=== PATIENT | female | born 1965 | race Caucasian/White ===

== ENCOUNTER 2018-01-23 09:57 | Emergency (ER) | payer MEDICAID ==
[~2018-01-23] VITALS: Ht 165.1 cm; Wt 64.5 kg
[2018-01-23 12:11] LABS: BASOPHILS % (AUTO) 0.2 % (0-1); EOSINOPHILS % (AUTO) 0.4 % (0-6); HEMATOCRIT 44.7 % (35.0-45.0); HEMOGLOBIN 15.2 g/dl (12.0-16.0); LYMPHOCYTES # (AUTO) 1.7 X10'3 (1.1-4.8); LYMPHOCYTES % (AUTO) 21.5 % (21-51); MEAN CORPUSCULAR VOLUME 91.2 FL (78-98); MEAN PLATELET VOLUME 6.4 FL (7.4-10.4); MONOCYTES # (AUTO) 0.4 X10'3 (0-0.9); MONOCYTES % (AUTO) 4.7 % (2-12); NEUTROPHILS # (AUTO) 5.9 X10'3 (1.8-7.7); NEUTROPHILS % (AUTO) 73.2 % (42-75); PLATELET COUNT 345 X10'3 (140-440); RED CELL DISTRIBUTION WIDTH 14.3 % (11.5-14.5); WHITE BLOOD COUNT 8.1 X10'3 (4.5-11.0)
[2018-01-23 12:14] LABS: URINE AMPHETAMINE SCREEN NEGATIVE (Neg); URINE BARBITUATE SCREEN NEGATIVE (Neg); URINE BENZODIAZEPINES SCREEN NEGATIVE (Neg); URINE CANNABINOID SCREEN POSITIVE (Neg); URINE COCAINE SCREEN NEGATIVE (Neg); URINE METHADONE SCREEN NEGATIVE (Neg); URINE OPIATE SCREEN NEGATIVE (Neg); URINE PHENCYCLIDINE SCREEN NEGATIVE (Neg)
[2018-01-23 12:25] LABS: ALANINE AMINOTRANSFERASE 26 U/L (12-78); ALBUMIN 4.4 G/DL (3.4-5.0); ALKALINE PHOSPHATASE 84 IU/L (46-116); ANION GAP 14 (8-16); ASPARTATE AMINO TRANSFERASE 60 U/L (10-37); BILIRUBIN,TOTAL 0.5 MG/DL (0.1-1.0); BLOOD UREA NITROGEN 11 MG/DL (7-18); BUN/CREATININE RATIO 12.8 (6.6-38.0); CALCIUM 9.7 MG/DL (8.5-10.1); CHLORIDE 102 MMOL/L (99-107); CREATININE 0.86 MG/DL (0.40-0.90); GLUCOSE 97 MG/DL (70-104); POTASSIUM 3.6 MMOL/L (3.5-5.1); SODIUM 140 MMOL/L (135-145); TOTAL CARBON DIOXIDE 24.5 MMOL/L (24-32); TOTAL PROTEIN 8.8 G/DL (6.4-8.2); eGFR 70 ML/MIN
[2018-01-23 12:30] VITALS: BP 141/82
[2018-01-23 12:36] LABS: ETHANOL < 0.010 GM/DL (0.0-0.010)
== END 2018-01-23 13:13 | disposition home or self-care (01) ==
LOC: ER 09:58
DX: F32.9 Major depressive disorder, single episode, unspecified (principal); K59.00 Constipation, unspecified; F12.90 Cannabis use, unspecified, uncomplicated; M06.9 Rheumatoid arthritis, unspecified; Z88.8 Allergy status to other drugs, medicaments and biological substances
CPT/HCPCS: 36415; 80053; 80305; 80320; 84443; 85025; 99284

== ENCOUNTER 2018-05-18 19:41 | Emergency (ER) | payer MEDICAID ==
[~2018-05-18] VITALS: Ht 165.1 cm; Wt 67.6 kg
[2018-05-18 19:45] VITALS: BP 167/86
[2018-05-18] MEDS ORDERED: TETanus/Pertussis (Acell)/Diphther VAC/PF (Tdap-Adult) 0.5ml syringe IM ONE (19:55)
[2018-05-18] MEDS ORDERED: LIDOcaine 1% 30ml preserv. free vial IJ ONE (19:55)
[2018-05-18] MEDS ORDERED: HYDR200T80 PO (20:12)
[2018-05-18] MEDS ORDERED: PRED5TAB PO (20:12)
[2018-05-18] MEDS ORDERED: TOFA5TAB PO (20:12)
== END 2018-05-18 21:11 | disposition home or self-care (01) ==
LOC: ER 19:41
DX: S81.812A Laceration without foreign body, left lower leg, initial encounter (principal); F12.10 Cannabis abuse, uncomplicated; M06.9 Rheumatoid arthritis, unspecified; Z88.8 Allergy status to other drugs, medicaments and biological substances; W26.8XXA Contact with other sharp object(s), not elsewhere classified, initial encounter; Y93.89 Activity, other specified; Y92.89 Other specified places as the place of occurrence of the external cause; Y99.8 Other external cause status
CPT/HCPCS: 12002; 73590; 90471; 90715; 99284; J3490

== ENCOUNTER 2018-09-05 09:32 | Outpatient (CLI) | payer MEDICAID ==
[~2018-09-05 09:32] MED LIST: HYDR200T80 PO; PRED5TAB PO; TOFA5TAB PO
== END 2018-09-05 23:59 | disposition home or self-care (01) ==
LOC: RAD 09:32
DX: R56.9 Unspecified convulsions (principal)
CPT/HCPCS: 95819

== ENCOUNTER 2019-05-15 12:39 | Inpatient (IN) | payer MEDICAID ==
[~2019-05-15] VITALS: Ht 165.1 cm; Wt 63.6 kg
[2019-05-15 13:07] LABS: BASOPHILS % (AUTO) 0.2 % (0-1); EOSINOPHILS % (AUTO) 0.3 % (0-6); HEMATOCRIT 40.7 % (35.0-45.0); LYMPHOCYTES # (AUTO) 0.7 X10'3 (1.1-4.8); LYMPHOCYTES % (AUTO) 10.3 % (21-51); MEAN CORPUSCULAR HEMOGLOBIN 32.3 PG (27.0-31.0); MEAN CORPUSCULAR HGB CONC 34.4 g/dL (33.0-36.5); MEAN CORPUSCULAR VOLUME 93.9 FL (78-98); MEAN PLATELET VOLUME 6.4 FL (7.4-10.4); MONOCYTES # (AUTO) 0.2 X10'3 (0-0.9); MONOCYTES % (AUTO) 2.5 % (2-12); NEUTROPHILS # (AUTO) 5.9 X10'3 (1.8-7.7); NEUTROPHILS % (AUTO) 86.7 % (42-75); PLATELET COUNT 339 X10'3 (140-440); RED BLOOD COUNT 4.34 X10'6 (4.20-5.60); RED CELL DISTRIBUTION WIDTH 13.6 % (11.5-14.5); WHITE BLOOD COUNT 6.8 X10'3 (4.5-11.0)
--- NOTE | 2019-05-15 13:34 | NUR ---
stroke assessment performed by neuro tele md. stroke assessment was negative
[2019-05-15 13:48] LABS: ALANINE AMINOTRANSFERASE 27 U/L (12-78); ALBUMIN 4.2 G/DL (3.4-5.0); ALBUMIN/GLOBULIN RATIO 1.1 (1.1-1.5); ALKALINE PHOSPHATASE 73 IU/L (46-116); ANION GAP 11 (8-16); ASPARTATE AMINO TRANSFERASE 65 U/L (10-37); BILIRUBIN,TOTAL 0.4 MG/DL (0.1-1.0); BLOOD UREA NITROGEN 13 MG/DL (7-18); BUN/CREATININE RATIO 17.6 (6.6-38.0); CALCIUM 9.1 MG/DL (8.5-10.1); CHLORIDE 103 MMOL/L (99-107); CREATININE 0.74 MG/DL (0.40-0.90); GLUCOSE 136 MG/DL (70-104); POTASSIUM 3.7 MMOL/L (3.5-5.1); SODIUM 141 MMOL/L (135-145); TOTAL CARBON DIOXIDE 26.8 MMOL/L (24-32); TOTAL PROTEIN 8.2 G/DL (6.4-8.2); eGFR 82 ML/MIN
[2019-05-15 13:55] LABS: CARBAMAZEPINE (TEGRETOL) < 0.5 UG/ML (4.0-12.0)
--- NOTE | 2019-05-15 14:02 | NUR ---
pt had a what appears to be a partial or non complete seizure. rn at bedside. md called in room witnessed.
[2019-05-15] MEDS ORDERED: CARB300C9 PO (14:23)
[2019-05-15] MEDS ORDERED: TEMA15CA PO (14:25)
[2019-05-15] MEDS ORDERED: BACL10TA2 PO (14:25)
[2019-05-15] MEDS ORDERED: PRED2.5T4 PO (14:26)
[2019-05-15] MEDS ORDERED: LEVE250T PO (14:35)
[2019-05-15] MEDS ORDERED: magnesium Cl slow-release 64mg tablet PO PRN (14:45)
[2019-05-15] MEDS ORDERED: acetaminophen 325mg tablet PO PRN ×2 (14:45)
[2019-05-15] MEDS ORDERED: magnesium hydroxide 30ml (MOM) UD suspension PO PRN (14:45)
[2019-05-15] MEDS ORDERED: TOFA5TAB PO (14:45)
[2019-05-15] MEDS ORDERED: mag hydrox/Alum hydrox/simeth 30ml oral suspension PO PRN (14:45)
[2019-05-15] MEDS ORDERED: HYDROcodone/acetaminophen 5mg/325mg tablet PO PRN (14:45)
[2019-05-15] MEDS ORDERED: magnesium 2GM in 50ml NS 50 ML IV PRN (14:45)
[2019-05-15] MEDS ORDERED: bisacodyl 10mg suppository rectal RC PRN (14:45)
[2019-05-15] MEDS ORDERED: FOSphenytoin 500mg inj. 1,000 MG in normal saline 100ml IV soln 80 ML IV ONE (14:45)
[2019-05-15] MEDS ORDERED: potassium CL 10mEq/100ml bag 100 ML IV PRN ×2 (14:45)
[2019-05-15] MEDS ORDERED: magnesium 4gm in 100ml NS 100 ML IV PRN (14:45)
[2019-05-15] MEDS ORDERED: ondansetron/PF 4mg/2ml inj IV PRN (14:45)
[2019-05-15] MEDS ORDERED: acetaminophen 650mg rectal suppository RC PRN (14:45)
[2019-05-15] MEDS ORDERED: potassium Cl 20 mEq SR tablet PO PRN ×2 (14:45)
[2019-05-15] MEDS ORDERED: metoclopramide 5 mg/ml inj IV PRN (14:45)
[2019-05-15] MEDS ORDERED: phenytoin sod inj 1,000 MG in normal saline 100ml IV soln 80 ML IV ONE (15:06)
[2019-05-15 15:10] LABS: PHENYTOIN (DILANTIN) < 0.5 UG/ML (10.0-20.0)
[2019-05-15] MEDS ORDERED: NORMAL SALINE IV ONE (15:20)
[2019-05-15] MEDS ORDERED: PHENYTOIN SOD IV ONE (15:20)
[2019-05-15] MEDS ORDERED: baclofen 10mg tablet PO PRN (15:40)
--- NOTE | 2019-05-15 15:42 | NUR ---
attempted to call report to RN receiving this patient and spoke with the charge nurse. I was told this nurse was not ready to take report and to call back in a few minutes
[2019-05-15] MEDS ORDERED: TOFA10TA PO (15:47)
--- NOTE | 2019-05-15 16:10 | NUR ---
CALLED REPORT TO DONOVAN ARMIJO ON [facility]
[2019-05-15] MEDS ORDERED: gadobutrol 10mmol/10ml inj. IV ONE (17:09)
[2019-05-15 18:00] VITALS: BP 138/81
--- NOTE | 2019-05-15 18:20 | NUR ---
Patient in room ORTHO 4009. I have received report from Kristen ARMIJO and Benji MOREAU and had the opportunity to ask questions and assume patient care.
--- NOTE | 2019-05-15 18:50 | NUR ---
Student documentation: I have reviewed and agree with all interventions, assessments performed and documented by Benji NS. Student Medication Administration: For this medication-pass time frame, all medication were reviewed, dispensed, administered and documented per hospital policy by Benji NS.
--- NOTE | 2019-05-15 18:54 | NUR ---
Problems reprioritized. Patient report given, questions answered & plan of care reviewed with Darshana ARMIJO.
[2019-05-15 20:28] LABS: CLARITY,URINE CLEAR (Clear); COLOR,URINE YELLOW (Yellow); GLUCOSE, URINE NEGATIVE (Neg); KETONES,URINE NEGATIVE (Neg); LEUKOCYTE ESTERASE ,URINE NEGATIVE (Neg); NITRITES, URINE NEGATIVE (Neg); OCCULT BLOOD,URINE NEGATIVE (Neg); PROTEIN,URINE NEGATIVE (Neg); UROBILINOGEN,URINE 0.2 E.U/dL (0.2-1.0)
[2019-05-15 20:29] LABS: UA COLLECTION TYPE CLN CATCH MIDSTREAM
[2019-05-15] MEDS ORDERED: carBAMazepine Ext. Release 200 MG TAB.ER.12H PO SCH (21:00)
[2019-05-15] MEDS ORDERED: temazepam 15mg capsule PO PRN (21:00)
[2019-05-15] MEDS ORDERED: temazepam 15mg capsule PO SCH (21:00)
[2019-05-15 22:00] VITALS: BP 109/61
[2019-05-16 06:00] VITALS: BP 124/78
--- NOTE | 2019-05-16 06:30 | NUR ---
Problems reprioritized. Patient report given, questions answered & plan of care reviewed with Ayo ARMIJO.
--- NOTE | 2019-05-16 06:31 | NUR ---
Patient in room ORTHO 4009. I have received report from Darshana ARMIJO and had the opportunity to ask questions and assume patient care.
[2019-05-16] MEDS ORDERED: K and/or MAG REPLACEMENT MC SCH (08:00)
[2019-05-16] MEDS ORDERED: hydroxychloroquine 200mg tablet PO SCH (08:00)
[2019-05-16] MEDS ORDERED: TOFACITINIB CITRATE PO SCH (08:00)
[2019-05-16] MEDS ORDERED: predniSONE 5mg tablet PO SCH (08:00)
[2019-05-16] MEDS ORDERED: PRED10TA23 PO (09:39)
--- NOTE | 2019-05-16 09:40 | NUR ---
Paged hospitalist, Dr. Sotelo about patient inquiring about discharge home today. PAGER ID: [phone] MESSAGE: Ayo vo [phone]. RE Bal [id number]. Patient is wondering what the plan is today and if she is getting discharged, would like to go home. Thank you!
[2019-05-16 10:00] VITALS: BP 114/67
--- NOTE | 2019-05-16 11:26 | NUR ---
Patient discharged to home with all belongings, IV taken out with canula intact, TELE box taken off, patient educated on discharge instruction
== END 2019-05-16 11:20 | disposition home or self-care (01) | DRG 53 ==
LOC: ER 12:39 → ED HOLD 14:44 → OBSVTOIN 14:44 → ORTHO 4S 16:25 → UNDODISOB 16:30
PROVIDERS: ADMIT Family Medicine; ATTEND Family Medicine
DX: G40.201 Localization-related (focal) (partial) symptomatic epilepsy and epileptic syndromes with complex partial seizures, not intractable, with status epilepticus (principal); M06.9 Rheumatoid arthritis, unspecified; Z86.011 Personal history of benign neoplasm of the brain; Z91.14 Patient's other noncompliance with medication regimen; Z79.899 Other long term (current) drug therapy
CPT/HCPCS: 36415; 70450; 70553; 71045; 80053; 80156; 80185; 81003; 85025; 87081; 97116; 97161; 97530; 99285; A9585; G0378; J1165; J7512; Q2009

== ENCOUNTER 2020-05-30 11:32 | Emergency (ER) | payer MEDICAID ==
[~2020-05-30] VITALS: Ht 165.1 cm; Wt 63.6 kg
[~2020-05-30 11:32] MED LIST changes: +BACL10TA2 PO; +CARB300C9 PO; +PRED10TA23 PO; -PRED5TAB PO; +TEMA15CA PO; +TOFA10TA PO; -TOFA5TAB PO
[2020-05-30] MEDS ORDERED: DEXAMETHASONE 6 MG TABLET PO STA (11:58)
[2020-05-30 12:46] LABS: BASOPHILS % (AUTO) 0.4 % (0-1); EOSINOPHILS % (AUTO) 0.2 % (0-6); HEMATOCRIT 39.2 % (35.0-45.0); HEMOGLOBIN 13.3 g/dl (12.0-16.0); LYMPHOCYTES # (AUTO) 0.5 X10'3 (1.1-4.8); LYMPHOCYTES % (AUTO) 8.4 % (21-51); MEAN CORPUSCULAR HEMOGLOBIN 32.6 PG (27.0-31.0); MEAN CORPUSCULAR HGB CONC 33.8 g/dL (33.0-36.5); MEAN CORPUSCULAR VOLUME 96.5 FL (78-98); MEAN PLATELET VOLUME 6.2 FL (7.4-10.4); MONOCYTES # (AUTO) 0.1 X10'3 (0-0.9); MONOCYTES % (AUTO) 2.5 % (2-12); NEUTROPHILS # (AUTO) 5.3 X10'3 (1.8-7.7); NEUTROPHILS % (AUTO) 88.5 % (42-75); PLATELET COUNT 342 X10'3 (140-440); RED BLOOD COUNT 4.06 X10'6 (4.20-5.60); RED CELL DISTRIBUTION WIDTH 15.2 % (11.5-14.5)
[2020-05-30 13:02] LABS: D-DIMER 0.45 MG/L FEU (0-0.50)
[2020-05-30 13:11] LABS: BILIRUBIN,TOTAL 0.4 MG/DL (0.1-1.0); BLOOD UREA NITROGEN 10 MG/DL (7-18); BUN/CREATININE RATIO 14.3 (6.6-38.0); C-REACTIVE PROTEIN 20.59 MG/DL (0.0-0.5); CHLORIDE 100 MMOL/L (99-107); GLUCOSE 102 MG/DL (70-104); POTASSIUM 3.7 MMOL/L (3.5-5.1); SODIUM 136 MMOL/L (135-145); eGFR 88 ML/MIN
[2020-05-30 13:15] LABS: ALANINE AMINOTRANSFERASE 64 U/L (12-78); ALBUMIN 2.9 G/DL (3.4-5.0); ALBUMIN/GLOBULIN RATIO 0.6 (1.1-1.5); ALKALINE PHOSPHATASE 90 IU/L (46-116); ANION GAP 8 (8-16); ASPARTATE AMINO TRANSFERASE 151 U/L (10-37); CALCIUM 8.6 MG/DL (8.5-10.1); LACTATE DEHYDROGENASE 427 U/L (81-234); TOTAL CARBON DIOXIDE 27.9 MMOL/L (24-32); TOTAL PROTEIN 7.6 G/DL (6.4-8.2)
[2020-05-30] MEDS ORDERED: AZIT-63 PO (13:33)
[2020-05-30 20:43] VITALS: BP 149/76
== END 2020-05-30 14:33 | disposition home or self-care (01) ==
LOC: ER 11:32
DX: U07.1 COVID-19 (principal); J12.89 Other viral pneumonia; M06.9 Rheumatoid arthritis, unspecified; F12.10 Cannabis abuse, uncomplicated; Z98.890 Other specified postprocedural states
CPT/HCPCS: 36415; 71045; 80053; 83615; 84145; 85025; 85379; 86140; 93005; 99285

== ENCOUNTER 2020-06-02 09:47 | Inpatient (IN) | payer MEDICAID ==
[~2020-06-02] VITALS: Ht 165.1 cm; Wt 63.6 kg
[~2020-06-02 09:47] MED LIST changes: +AZIT-63 PO
[2020-06-02] MEDS ORDERED: normal saline 1000ML IV soln IVB ONE (10:30)
[2020-06-02 11:49] LABS: BASOPHILS % (AUTO) 0.3 % (0-1); EOSINOPHILS # (AUTO) 0.1 X10'3 (0-0.9); EOSINOPHILS % (AUTO) 0.9 % (0-6); HEMATOCRIT 36.2 % (35.0-45.0); HEMOGLOBIN 12.8 g/dl (12.0-16.0); LYMPHOCYTES # (AUTO) 0.6 X10'3 (1.1-4.8); LYMPHOCYTES % (AUTO) 5.8 % (21-51); MEAN CORPUSCULAR HEMOGLOBIN 34.1 PG (27.0-31.0); MEAN CORPUSCULAR HGB CONC 35.4 g/dL (33.0-36.5); MEAN CORPUSCULAR VOLUME 96.2 FL (78-98); MEAN PLATELET VOLUME 5.9 FL (7.4-10.4); MONOCYTES # (AUTO) 0.5 X10'3 (0-0.9); MONOCYTES % (AUTO) 5.3 % (2-12); NEUTROPHILS # (AUTO) 8.3 X10'3 (1.8-7.7); NEUTROPHILS % (AUTO) 87.7 % (42-75); PLATELET COUNT 542 X10'3 (140-440); RED BLOOD COUNT 3.76 X10'6 (4.20-5.60); RED CELL DISTRIBUTION WIDTH 15.5 % (11.5-14.5); WHITE BLOOD COUNT 9.5 X10'3 (4.5-11.0)
[2020-06-02] MEDS ORDERED: dexamethasone sod phosphate 10mg/ml inj IV STA (11:51)
--- NOTE | 2020-06-02 12:00 | NUR ---
PATIENT WITH UNSTEADY GAIT TEST AND SPO2 [id number] KAY NOTIFIED REQUESTED.
[2020-06-02 12:05] LABS: ALANINE AMINOTRANSFERASE 47 U/L (12-78); ALBUMIN 2.6 G/DL (3.4-5.0); ALBUMIN/GLOBULIN RATIO 0.5 (1.1-1.5); ALKALINE PHOSPHATASE 102 IU/L (46-116); ANION GAP 9 (8-16); ASPARTATE AMINO TRANSFERASE 107 U/L (10-37); BILIRUBIN,TOTAL 0.5 MG/DL (0.1-1.0); BLOOD UREA NITROGEN 9 MG/DL (7-18); BUN/CREATININE RATIO 11.8 (6.6-38.0); CALCIUM 9.4 MG/DL (8.5-10.1); CHLORIDE 100 MMOL/L (99-107); CREATININE 0.76 MG/DL (0.40-0.90); GLUCOSE 116 MG/DL (70-104); POTASSIUM 3.8 MMOL/L (3.5-5.1); SODIUM 136 MMOL/L (135-145); TOTAL CARBON DIOXIDE 26.7 MMOL/L (24-32); TOTAL PROTEIN 8.1 G/DL (6.4-8.2); eGFR 80 ML/MIN
[2020-06-02 12:18] LABS: C-REACTIVE PROTEIN 22.63 MG/DL (0.0-0.5); FERRITIN 711 NG/ML (8-252); LACTATE DEHYDROGENASE 419 U/L (81-234); MAGNESIUM 2.2 MG/DL (1.5-2.4)
[2020-06-02] MEDS ORDERED: azithromycin/NS 500mg/250ml 250 ML IV ONE (12:20)
[2020-06-02] MEDS ORDERED: CefTRIAXone/D5W-Rocephin 1gm 50 ML IV ONE (12:20)
[2020-06-02] MEDS ORDERED: magnesium 2GM in 50ml NS 50 ML IV PRN (13:20)
[2020-06-02] MEDS ORDERED: acetaminophen 325mg tablet PO PRN ×2 (13:20)
[2020-06-02] MEDS ORDERED: baclofen 10mg tablet PO PRN (13:20)
[2020-06-02] MEDS ORDERED: ipratropium/albuterol 3ml nebule NEB PRN (13:20)
[2020-06-02] MEDS ORDERED: magnesium 4gm in 100ml NS 100 ML IV PRN (13:20)
[2020-06-02] MEDS ORDERED: morphine 2 MG/ML inj. syringe IV PRN ×2 (13:20)
[2020-06-02] MEDS ORDERED: magnesium Cl slow-release 64mg tablet PO PRN (13:20)
[2020-06-02] MEDS ORDERED: HYDROcodone/acetaminophen 10/325mg tab PO PRN (13:20)
[2020-06-02] MEDS ORDERED: diphenhydrAMINE 25mg capsule PO PRN (13:20)
[2020-06-02] MEDS ORDERED: HYDROcodone/acetaminophen 5mg/325mg tablet PO PRN (13:20)
[2020-06-02] MEDS ORDERED: magnesium hydroxide 30ml (MOM) UD suspension PO PRN (13:20)
[2020-06-02] MEDS ORDERED: bisacodyl 10mg suppository rectal RC PRN (13:20)
[2020-06-02] MEDS ORDERED: potassium Cl 20 mEq SR tablet PO PRN (13:20)
[2020-06-02] MEDS ORDERED: acetaminophen 650mg rectal suppository RC PRN (13:20)
[2020-06-02] MEDS ORDERED: ondansetron/PF 4mg/2ml inj IV PRN (13:20)
[2020-06-02] MEDS ORDERED: potassium CL 10mEq/100ml bag 100 ML IV PRN ×2 (13:20)
[2020-06-02] MEDS ORDERED: mag hydrox/Alum hydrox/simeth 30ml oral suspension PO PRN (13:20)
[2020-06-02] MEDS ORDERED: CARB200T8 PO (13:25)
[2020-06-02] MEDS ORDERED: [UNRECOGNIZED DRUG - CODE] SQ (13:25)
[2020-06-02] MEDS ORDERED: FOLI0.8T PO (13:25)
[2020-06-02] MEDS ORDERED: ALEN70TA80 PO (13:25)
[2020-06-02] MEDS ORDERED: AZIT250T29 PO (13:25)
[2020-06-02 13:53] LABS: HEMOGLOBIN A1C 5.8 % (4.5-6.2)
[2020-06-02 15:00] VITALS: BP 145/77
[2020-06-02] MEDS: normal saline 1000ml 1,000 ML IV SCH (15:00)
[2020-06-02] MEDS: enoxaparin 40mg/0.4ml syringe SUBCUT SCH (16:12)
[2020-06-02] MEDS: benzonatate 100mg capsule PO SCH ×2 (16:12→21:04)
[2020-06-02] MEDS: vancomycin/NS 1 GM ADD-VANTAGE 250 ML IV SCH (16:13)
[2020-06-02] MEDS ORDERED: ALBUTEROL INHALER 1 PUFF/90 MCG INHALER IH PRN (16:35)
--- NOTE | 2020-06-02 16:42 | NUR ---
notified. PAGER ID: [phone] MESSAGE: RE: Hodan Angeles. 3020. FYI, Code status change to DNR. I edited but realized that you need to put it in. Thanks. Nannette. [phone].
--- NOTE | 2020-06-02 17:17 | NUR ---
notified. PAGER ID: [phone] MESSAGE: ReHodan Linares. 3020. FYI Code status changed to full code until you address it. Thanks. Nannette [phone].
[2020-06-02 18:00] VITALS: BP 157/88
--- NOTE | 2020-06-02 18:10 | NUR ---
Patient in room PCU 3020. I have received report from ALEKSANDER Brunson and had the opportunity to ask questions and assume patient care.
--- NOTE | 2020-06-02 18:15 | NUR ---
Problems reprioritized. Patient report given, questions answered & plan of care reviewed with ALEKSANDER Peterson.
[2020-06-02] MEDS: carBAMazepine 100mg chewable tablet PO SCH (19:53)
[2020-06-02] MEDS: K and/or MAG REPLACEMENT MC SCH (20:00)
[2020-06-02] MEDS: temazepam 15mg capsule PO SCH (21:04)
[2020-06-03 02:00] VITALS: BP 156/84
[2020-06-03] MEDS: normal saline 1000ml 1,000 ML IV SCH (02:40)
[2020-06-03] MEDS: vancomycin/NS 1 GM ADD-VANTAGE 250 ML IV SCH ×2 (03:12→14:51)
[2020-06-03 06:00] VITALS: BP 160/80
[2020-06-03 06:14] LABS: BASOPHILS % (AUTO) 0.1 % (0-1); EOSINOPHILS % (AUTO) 0 % (0-6); HEMATOCRIT 30.2 % (35.0-45.0); HEMOGLOBIN 10.6 g/dl (12.0-16.0); LYMPHOCYTES # (AUTO) 0.6 X10'3 (1.1-4.8); LYMPHOCYTES % (AUTO) 13.6 % (21-51); MEAN CORPUSCULAR HEMOGLOBIN 33.6 PG (27.0-31.0); MEAN CORPUSCULAR HGB CONC 35.2 g/dL (33.0-36.5); MEAN CORPUSCULAR VOLUME 95.6 FL (78-98); MEAN PLATELET VOLUME 5.8 FL (7.4-10.4); MONOCYTES # (AUTO) 0.4 X10'3 (0-0.9); MONOCYTES % (AUTO) 8.4 % (2-12); NEUTROPHILS # (AUTO) 3.4 X10'3 (1.8-7.7); NEUTROPHILS % (AUTO) 77.9 % (42-75); PLATELET COUNT 541 X10'3 (140-440); RED BLOOD COUNT 3.16 X10'6 (4.20-5.60); RED CELL DISTRIBUTION WIDTH 15.2 % (11.5-14.5); WHITE BLOOD COUNT 4.4 X10'3 (4.5-11.0)
[2020-06-03 06:33] LABS: D-DIMER 0.54 MG/L FEU (0-0.50)
--- NOTE | 2020-06-03 06:37 | NUR ---
Patient in room PCU 3020. I have received report from ALEKSANDER MAN and had the opportunity to ask questions and assume patient care.
[2020-06-03 06:41] LABS: ALANINE AMINOTRANSFERASE 38 U/L (12-78); ALBUMIN 2.1 G/DL (3.4-5.0); ALBUMIN/GLOBULIN RATIO 0.4 (1.1-1.5); ALKALINE PHOSPHATASE 81 IU/L (46-116); ANION GAP 10 (8-16); ASPARTATE AMINO TRANSFERASE 90 U/L (10-37); BILIRUBIN,TOTAL 0.3 MG/DL (0.1-1.0); BLOOD UREA NITROGEN 4 MG/DL (7-18); BUN/CREATININE RATIO 8.5 (6.6-38.0); C-REACTIVE PROTEIN 18.54 MG/DL (0.0-0.5); CALCIUM 8.7 MG/DL (8.5-10.1); CHLORIDE 107 MMOL/L (99-107); CHOL/HDL RATIO 3.3 (0.00-4.99); CHOLESTEROL 114 MG/DL (0-200); CREATININE 0.47 MG/DL (0.40-0.90); GLUCOSE 114 MG/DL (70-104); HDL CHOLESTEROL 35 MG/DL (35-60); LACTATE DEHYDROGENASE 325 U/L (81-234); LDL CHOLESTEROL 63 MG/DL (50-100); MAGNESIUM 2.2 MG/DL (1.5-2.4); PHOSPHORUS 2.8 MG/DL (2.3-4.5); POTASSIUM 3.5 MMOL/L (3.5-5.1); SODIUM 141 MMOL/L (135-145); TOTAL CARBON DIOXIDE 23.7 MMOL/L (24-32); TRIGLYCERIDES 127 MG/DL (20-135); eGFR > 90 ML/MIN
--- NOTE | 2020-06-03 06:43 | NUR ---
Problems reprioritized. Patient report given, questions answered & plan of care reviewed with ALEKSANDER Jensen.
[2020-06-03] MEDS ORDERED: folic acid 1mg tablet PO SCH (08:00)
[2020-06-03] MEDS ORDERED: azithromycin 250mg tablet PO SCH (08:00)
[2020-06-03] MEDS: K and/or MAG REPLACEMENT MC SCH ×2 (08:00→20:00)
[2020-06-03] MEDS: CefTRIAXone/D5W-Rocephin 1gm 50 ML IV SCH (08:00)
[2020-06-03] MEDS: DEXAMETHASONE 6 MG TABLET PO SCH (08:03)
[2020-06-03] MEDS: hydroxychloroquine 200mg tablet PO SCH (08:04)
[2020-06-03] MEDS: carBAMazepine 100mg chewable tablet PO SCH ×2 (08:07→19:47)
[2020-06-03] MEDS: benzonatate 100mg capsule PO SCH ×3 (08:07→21:41)
[2020-06-03] MEDS: enoxaparin 40mg/0.4ml syringe SUBCUT SCH (08:09)
--- NOTE | 2020-06-03 09:22 | NUR ---
SHANIA BAIRD RN STATES "DR. 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 SNELL, ECHO CANCELLED.
[2020-06-03 11:00] VITALS: BP 124/70
[2020-06-03 15:00] VITALS: BP 130/76
[2020-06-03 18:00] VITALS: BP 155/78
--- NOTE | 2020-06-03 18:25 | NUR ---
Patient in room PCU 3020. I have received report from ALEKSANDER Jensen and had the opportunity to ask questions and assume patient care.
--- NOTE | 2020-06-03 18:40 | NUR ---
Problems reprioritized. Patient report given, questions answered & plan of care reviewed with ALEKSANDER MAN.
[2020-06-03] MEDS: folic acid 1mg tablet PO SCH (21:41)
[2020-06-03] MEDS: temazepam 15mg capsule PO SCH (21:41)
[2020-06-03 22:00] VITALS: BP 143/69
[2020-06-04 02:00] VITALS: BP 141/58
[2020-06-04] MEDS ORDERED: VANCOMYCIN LEVEL IV ONE (02:30)
[2020-06-04] MEDS: vancomycin/NS 1 GM ADD-VANTAGE 250 ML IV SCH ×3 (02:59→19:12)
[2020-06-04 03:46] LABS: BASOPHILS % (AUTO) 0.1 % (0-1); EOSINOPHILS % (AUTO) 0.2 % (0-6); HEMATOCRIT 31.6 % (35.0-45.0); LYMPHOCYTES # (AUTO) 0.9 X10'3 (1.1-4.8); LYMPHOCYTES % (AUTO) 11.9 % (21-51); MEAN CORPUSCULAR HEMOGLOBIN 33.1 PG (27.0-31.0); MEAN CORPUSCULAR HGB CONC 34.7 g/dL (33.0-36.5); MEAN CORPUSCULAR VOLUME 95.5 FL (78-98); MEAN PLATELET VOLUME 6.4 FL (7.4-10.4); MONOCYTES # (AUTO) 0.6 X10'3 (0-0.9); MONOCYTES % (AUTO) 8.6 % (2-12); NEUTROPHILS # (AUTO) 5.9 X10'3 (1.8-7.7); NEUTROPHILS % (AUTO) 79.2 % (42-75); PLATELET COUNT 550 X10'3 (140-440); RED BLOOD COUNT 3.31 X10'6 (4.20-5.60); RED CELL DISTRIBUTION WIDTH 15.3 % (11.5-14.5); WHITE BLOOD COUNT 7.4 X10'3 (4.5-11.0)
[2020-06-04 03:51] LABS: D-DIMER 0.72 MG/L FEU (0-0.50)
[2020-06-04 03:55] LABS: ALANINE AMINOTRANSFERASE 65 U/L (12-78); ALBUMIN 2.2 G/DL (3.4-5.0); ALBUMIN/GLOBULIN RATIO 0.5 (1.1-1.5); ALKALINE PHOSPHATASE 76 IU/L (46-116); ANION GAP 9 (8-16); ASPARTATE AMINO TRANSFERASE 129 U/L (10-37); BILIRUBIN,TOTAL 0.2 MG/DL (0.1-1.0); BLOOD UREA NITROGEN 5 MG/DL (7-18); BUN/CREATININE RATIO 9.8 (6.6-38.0); C-REACTIVE PROTEIN 9.05 MG/DL (0.0-0.5); CALCIUM 9.4 MG/DL (8.5-10.1); CHLORIDE 106 MMOL/L (99-107); CREATININE 0.51 MG/DL (0.40-0.90); GLUCOSE 87 MG/DL (70-104); LACTATE DEHYDROGENASE 389 U/L (81-234); MAGNESIUM 2.2 MG/DL (1.5-2.4); PHOSPHORUS 2.2 MG/DL (2.3-4.5); POTASSIUM 3.4 MMOL/L (3.5-5.1); SODIUM 142 MMOL/L (135-145); TOTAL PROTEIN 6.8 G/DL (6.4-8.2); VANCOMYCIN,TROUGH 6.2 UG/ML (6.0-14.0); eGFR > 90 ML/MIN
[2020-06-04 06:00] VITALS: BP 146/76
--- NOTE | 2020-06-04 06:30 | NUR ---
Patient in room PCU 3020. I have received report from ALEKSANDER MAN and had the opportunity to ask questions and assume patient care.
--- NOTE | 2020-06-04 06:50 | NUR ---
Problems reprioritized. Patient report given, questions answered & plan of care reviewed with ALEKSANDER Jensen.
[2020-06-04] MEDS: hydroxychloroquine 200mg tablet PO SCH (07:39)
[2020-06-04] MEDS: DEXAMETHASONE 6 MG TABLET PO SCH (07:39)
[2020-06-04] MEDS: CefTRIAXone/D5W-Rocephin 1gm 50 ML IV SCH (07:39)
[2020-06-04] MEDS: carBAMazepine 100mg chewable tablet PO SCH ×2 (07:40→19:12)
[2020-06-04] MEDS: enoxaparin 40mg/0.4ml syringe SUBCUT SCH (07:41)
[2020-06-04] MEDS: benzonatate 100mg capsule PO SCH ×3 (07:41→20:31)
[2020-06-04] MEDS: potassium Cl 20 mEq SR tablet PO PRN ×3 (07:42→17:40)
[2020-06-04] MEDS: K and/or MAG REPLACEMENT MC SCH ×2 (08:00→20:00)
[2020-06-04 11:00] VITALS: BP 124/68
[2020-06-04 15:00] VITALS: BP 137/79
[2020-06-04 18:00] VITALS: BP 140/61
--- NOTE | 2020-06-04 18:23 | NUR ---
Problems reprioritized. Patient report given, questions answered & plan of care reviewed with ALEKSANDER PRETTY.
[2020-06-04] MEDS: lactobacillus rhamnosus 10,000 MMU CELLS/CAPSULE PO SCH (19:11)
[2020-06-04] MEDS: temazepam 15mg capsule PO SCH (20:31)
[2020-06-04] MEDS: folic acid 1mg tablet PO SCH (20:31)
[2020-06-04 22:00] VITALS: BP 144/83
[2020-06-05 02:00] VITALS: BP 149/83
[2020-06-05 02:34] LABS: BASOPHILS % (AUTO) 0.2 % (0-1); EOSINOPHILS # (AUTO) 0.1 X10'3 (0-0.9); HEMATOCRIT 31.5 % (35.0-45.0); HEMOGLOBIN 11.2 g/dl (12.0-16.0); LYMPHOCYTES # (AUTO) 0.9 X10'3 (1.1-4.8); LYMPHOCYTES % (AUTO) 11.9 % (21-51); MEAN CORPUSCULAR HEMOGLOBIN 33.7 PG (27.0-31.0); MEAN CORPUSCULAR HGB CONC 35.4 g/dL (33.0-36.5); MEAN CORPUSCULAR VOLUME 95.2 FL (78-98); MEAN PLATELET VOLUME 5.7 FL (7.4-10.4); MONOCYTES # (AUTO) 0.7 X10'3 (0-0.9); MONOCYTES % (AUTO) 9.7 % (2-12); NEUTROPHILS # (AUTO) 5.5 X10'3 (1.8-7.7); NEUTROPHILS % (AUTO) 77.2 % (42-75); PLATELET COUNT 552 X10'3 (140-440); RED BLOOD COUNT 3.31 X10'6 (4.20-5.60); RED CELL DISTRIBUTION WIDTH 15.1 % (11.5-14.5); WHITE BLOOD COUNT 7.2 X10'3 (4.5-11.0)
[2020-06-05 02:43] LABS: D-DIMER 1.25 MG/L FEU (0-0.50)
[2020-06-05 02:57] LABS: GLUCOSE 87 MG/DL (70-104); POTASSIUM 3.9 MMOL/L (3.5-5.1); SODIUM 140 MMOL/L (135-145)
[2020-06-05 02:58] LABS: ALANINE AMINOTRANSFERASE 58 U/L (12-78); ALBUMIN 2.2 G/DL (3.4-5.0); ALBUMIN/GLOBULIN RATIO 0.5 (1.1-1.5); ALKALINE PHOSPHATASE 78 IU/L (46-116); ANION GAP 9 (8-16); ASPARTATE AMINO TRANSFERASE 104 U/L (10-37); BILIRUBIN,TOTAL 0.3 MG/DL (0.1-1.0); BLOOD UREA NITROGEN 4 MG/DL (7-18); C-REACTIVE PROTEIN 10.33 MG/DL (0.0-0.5); CALCIUM 8.5 MG/DL (8.5-10.1); CHLORIDE 105 MMOL/L (99-107); CREATININE 0.57 MG/DL (0.40-0.90); LACTATE DEHYDROGENASE 286 U/L (81-234); MAGNESIUM 2.1 MG/DL (1.5-2.4); PHOSPHORUS 1.9 MG/DL (2.3-4.5); TOTAL CARBON DIOXIDE 25.8 MMOL/L (24-32); TOTAL PROTEIN 6.8 G/DL (6.4-8.2); VANCOMYCIN,TROUGH 16.8 UG/ML (6.0-14.0); eGFR > 90 ML/MIN
[2020-06-05] MEDS: vancomycin/NS 1 GM ADD-VANTAGE 250 ML IV SCH (03:08)
--- NOTE | 2020-06-05 06:00 | NUR ---
Patient in room PCU 3020. I have received report from GIRISH and had the opportunity to ask questions and assume patient care.
--- NOTE | 2020-06-05 06:07 | NUR ---
Problems reprioritized. Patient report given, questions answered & plan of care reviewed with ALEKSANDER Toledo.
--- NOTE | 2020-06-05 06:17 | NUR ---
Patient in room PCU 3020. I have received report from Maria Elena ARMIJO and had the opportunity to ask questions and assume patient care.
[2020-06-05 08:00] VITALS: BP 134/64
[2020-06-05] MEDS: K and/or MAG REPLACEMENT MC SCH (08:00)
[2020-06-05] MEDS: carBAMazepine 100mg chewable tablet PO SCH (08:16)
[2020-06-05] MEDS: CefTRIAXone/D5W-Rocephin 1gm 50 ML IV SCH (08:16)
[2020-06-05] MEDS: lactobacillus rhamnosus 10,000 MMU CELLS/CAPSULE PO SCH (08:17)
[2020-06-05] MEDS: DEXAMETHASONE 6 MG TABLET PO SCH (08:17)
[2020-06-05] MEDS: enoxaparin 40mg/0.4ml syringe SUBCUT SCH (08:17)
[2020-06-05] MEDS: hydroxychloroquine 200mg tablet PO SCH (08:17)
[2020-06-05] MEDS: benzonatate 100mg capsule PO SCH ×2 (08:18→12:38)
--- NOTE | 2020-06-05 09:11 | NUR ---
O2 Sat at rest on room air: 86% If below 89%: Recovery O2 Sat at rest on 2 LPM: 95%: via__nasal canula___(mask/nasal cannula, etc..) No further documentation is necessary. If O2 Sat did not drop below 89% on room air,ambulate patient on room air. O2 Sat while ambulating on room air:___% Recovery O2 Sat while ambulating on ___LPM:___% No further documentation is necessary. If patient does not drop below 89% while ambulating, he/she does not qualify for home O2.
[2020-06-05 11:00] VITALS: BP 119/66
[2020-06-05] MEDS ORDERED: LACT1CAP26 PO (14:35)
[2020-06-05] MEDS ORDERED: BENZ-16 PO (14:35)
[2020-06-05] MEDS ORDERED: RIVA20TA PO (14:35)
[2020-06-05] MEDS ORDERED: ALBU8.5H8 INH (14:35)
[2020-06-05] MEDS ORDERED: CEFD300C3 PO (14:35)
[2020-06-05] MEDS ORDERED: DEXA6TAB PO (14:35)
--- NOTE | 2020-06-05 17:00 | NUR ---
Pt DC'd home with family. IV removed and canula intact. Tele-box removed and returned to tele-tech. Pt alert and Oriented upon DC. Per Dr. Ramos; pt is stable for DC. New prescriptions called into [facility]. Pt educated on the dosage change for the new Xarelto; 10mg daily for 2 weeks. DC paperwork printed out and gone over with Pt. Allowed Pt to ask questions concerning DC and then answered them. Pt educated to quarantine once home for 2 weeks regarding her COVID 19 diagnosis. Pt's belongings gathered and sent with Pt. Pt wheeled down to lobby in wheelchair and left in private vehicle with family for home.
--- NOTE | 2020-06-05 17:05 | NUR ---
DISCHARGE 1700: PATIENT BROUGHT FROM FLOOR TO RIDE IN A WHEELCHAIR, SHE IS STABLE PER MD ORDERS. ALL DISCHARGE PAPER REVIEWED WITH PATIENT, IV AND TELE REMOVED, BELONGINGS SENT WITH PATIENT, WELL HOME OXYGEN FROM [facility].
== END 2020-06-05 16:49 | disposition home or self-care (01) | DRG 137 ==
LOC: ER 09:47 → ED HOLD 13:18 → EDBEDREQ 13:58 → PCU 3S 14:46
PROVIDERS: ADMIT Family Medicine; ATTEND Internal Medicine Infectious Disease
DX: U07.1 COVID-19 (principal); J96.01 Acute respiratory failure with hypoxia; J12.89 Other viral pneumonia; Z79.899 Other long term (current) drug therapy; Z66 Do not resuscitate; M06.9 Rheumatoid arthritis, unspecified; G40.909 Epilepsy, unspecified, not intractable, without status epilepticus; F12.90 Cannabis use, unspecified, uncomplicated
CPT/HCPCS: 36415; 71045; 80053; 80061; 80202; 82728; 83036; 83605; 83615; 83735; 84100; 84145; 85025; 85379; 86140; 87040; 87081; 93005; 94760; 96365; 96368; 96375; 99285; G0378; J0456; J0696; J1100; J1650; J3370; J7030; J8540

== ENCOUNTER 2020-08-09 15:19 | Emergency (ER) | payer MEDICAID ==
[~2020-08-09] VITALS: Ht 165.1 cm; Wt 64.5 kg
[~2020-08-09 15:19] MED LIST changes: +ALBU8.5H8 INH; +ALEN70TA80 PO; -AZIT-63 PO; +BENZ-16 PO; +CARB200T8 PO; -CARB300C9 PO; +DEXA6TAB PO; +FOLI0.8T PO; +LACT1CAP26 PO; -PRED10TA23 PO; +RIVA20TA PO; -TOFA10TA PO; +[UNRECOGNIZED DRUG - CODE] SQ
[2020-08-09 15:21] VITALS: BP 160/95
[2020-08-09] MEDS ORDERED: PREG150C PO (16:29)
[2020-08-09] MEDS ORDERED: HYDR-3965 PO (16:29)
== END 2020-08-09 17:00 | disposition home or self-care (01) ==
LOC: ER 15:19
DX: B02.9 Zoster without complications (principal); B02.29 Other postherpetic nervous system involvement; M79.604 Pain in right leg; R20.0 Anesthesia of skin; F12.90 Cannabis use, unspecified, uncomplicated; Z86.69 Personal history of other diseases of the nervous system and sense organs; Z98.890 Other specified postprocedural states; Z72.89 Other problems related to lifestyle; Z88.8 Allergy status to other drugs, medicaments and biological substances; Z79.899 Other long term (current) drug therapy
CPT/HCPCS: 99283

== ENCOUNTER 2020-11-23 14:25 | Emergency (ER) | payer MEDICAID ==
[~2020-11-23] VITALS: Ht 165.1 cm; Wt 66.8 kg
[~2020-11-23 14:25] MED LIST changes: -FOLI0.8T PO; +FOLI0.8T3 PO; +PREG150C PO
--- NOTE | 2020-11-23 15:04 | NUR ---
RELIEVING RN FOR BREAK, DR HUYNH AT BEDSIDE TO EVALUATE PT, GAVE VERBAL ORDER FOR BLOOD DRAW ONLY, NO SALINE LOCK NEEDED
[2020-11-23] MEDS ORDERED: metoprolol tartrate 50mg tablet PO ONE (15:05)
[2020-11-23 15:10] LABS: CLARITY,URINE CLEAR (Clear); COLOR,URINE YELLOW (Yellow); GLUCOSE, URINE NEGATIVE (Neg); KETONES,URINE NEGATIVE (Neg); LEUKOCYTE ESTERASE ,URINE MODERATE (Neg); NITRITES, URINE NEGATIVE (Neg); OCCULT BLOOD,URINE NEGATIVE (Neg); PROTEIN,URINE NEGATIVE (Neg); UROBILINOGEN,URINE 0.2 E.U/dL (0.2-1.0)
[2020-11-23 15:15] LABS: BACTERIA,URINE 1+ /HPF (Neg); RBC,URINE 0-2 /HPF (0-2); UA COLLECTION TYPE CLN CATCH MIDSTREAM; WBC,URINE 0-4 /HPF (0-4)
[2020-11-23 15:16] LABS: MUCUS STRANDS FEW /LPF (Neg); SQUAMOUS EPITHELIAL CELL,UR NONE SEEN /LPF (FEW)
[2020-11-23 15:26] LABS: BASOPHILS # (AUTO) 0.1 X10'3 (0-0.2); BASOPHILS % (AUTO) 0.6 % (0-1); EOSINOPHILS # (AUTO) 0.1 X10'3 (0-0.9); EOSINOPHILS % (AUTO) 1.3 % (0-6); HEMATOCRIT 37.8 % (35.0-45.0); HEMOGLOBIN 13.1 g/dl (12.0-16.0); LYMPHOCYTES # (AUTO) 0.7 X10'3 (1.1-4.8); LYMPHOCYTES % (AUTO) 6.6 % (21-51); MEAN CORPUSCULAR HEMOGLOBIN 34.7 PG (27.0-31.0); MEAN CORPUSCULAR HGB CONC 34.8 g/dL (33.0-36.5); MEAN CORPUSCULAR VOLUME 99.9 FL (78-98); MEAN PLATELET VOLUME 6.4 FL (7.4-10.4); MONOCYTES # (AUTO) 0.3 X10'3 (0-0.9); NEUTROPHILS # (AUTO) 9.6 X10'3 (1.8-7.7); NEUTROPHILS % (AUTO) 88.5 % (42-75); PLATELET COUNT 396 X10'3 (140-440); RED BLOOD COUNT 3.79 X10'6 (4.20-5.60); RED CELL DISTRIBUTION WIDTH 14.8 % (11.5-14.5); WHITE BLOOD COUNT 10.9 X10'3 (4.5-11.0)
[2020-11-23 15:42] LABS: ALANINE AMINOTRANSFERASE 29 U/L (12-78); ALBUMIN 3.8 G/DL (3.4-5.0); ALKALINE PHOSPHATASE 96 IU/L (46-116); ANION GAP 11 (8-16); ASPARTATE AMINO TRANSFERASE 55 U/L (10-37); BILIRUBIN,TOTAL 0.3 MG/DL (0.1-1.0); BLOOD UREA NITROGEN 11 MG/DL (7-18); BUN/CREATININE RATIO 17.5 (6.6-38.0); CALCIUM 9.4 MG/DL (8.5-10.1); CHLORIDE 106 MMOL/L (99-107); CREATININE 0.63 MG/DL (0.40-0.90); GLUCOSE 119 MG/DL (70-104); POTASSIUM 3.9 MMOL/L (3.5-5.1); SODIUM 140 MMOL/L (135-145); TOTAL CARBON DIOXIDE 22.9 MMOL/L (24-32); TOTAL PROTEIN 7.8 G/DL (6.4-8.2); eGFR > 90 ML/MIN
[2020-11-23] MEDS ORDERED: CEPH-585 PO (16:04)
[2020-11-23] MEDS ORDERED: cephalexin 250mg capsule PO ONE (16:05)
[2020-11-23 16:55] VITALS: BP 143/87
== END 2020-11-23 16:57 | disposition home or self-care (01) ==
LOC: ER 14:26
DX: I10 Essential (primary) hypertension (principal); Z20.822 Contact with and (suspected) exposure to COVID-19; N39.0 Urinary tract infection, site not specified; R07.89 Other chest pain; M19.90 Unspecified osteoarthritis, unspecified site; F17.210 Nicotine dependence, cigarettes, uncomplicated; F12.90 Cannabis use, unspecified, uncomplicated; Z86.69 Personal history of other diseases of the nervous system and sense organs; Z98.890 Other specified postprocedural states; Z72.89 Other problems related to lifestyle; Z88.8 Allergy status to other drugs, medicaments and biological substances; Z79.899 Other long term (current) drug therapy
CPT/HCPCS: 36415; 71045; 80053; 81001; 83880; 84145; 84484; 85025; 87635; 93005; 99285; C9803

== ENCOUNTER 2022-03-11 13:11 | Emergency (ER) | payer MEDICAID ==
[~2022-03-11] VITALS: Ht 162.6 cm; Wt 68.2 kg
[~2022-03-11 13:11] MED LIST changes: +ALBU8.5H17 INH; -ALBU8.5H8 INH
[2022-03-11 13:19] VITALS: BP 157/86
== END 2022-03-11 16:39 | disposition left against medical advice (07) ==
LOC: ER 13:12
DX: Z53.21 Procedure and treatment not carried out due to patient leaving prior to being seen by health care provider

== ENCOUNTER 2022-03-12 05:19 | Emergency (ER) | payer MEDICAID ==
[~2022-03-12] VITALS: Ht 162.6 cm; Wt 68.2 kg
[2022-03-12 07:05] VITALS: BP 154/83
== END 2022-03-12 08:30 | disposition home or self-care (01) ==
LOC: ER 05:20
DX: Z00.00 Encounter for general adult medical examination without abnormal findings (principal); F12.90 Cannabis use, unspecified, uncomplicated; Z88.8 Allergy status to other drugs, medicaments and biological substances; Z98.890 Other specified postprocedural states
CPT/HCPCS: 99281

== ENCOUNTER 2023-11-12 12:32 | Emergency (ER) | payer MEDICAID ==
[~2023-11-12] VITALS: Ht 162.6 cm; Wt 70.8 kg
[2023-11-12 13:06] LABS: BASOPHILS % (AUTO) 0.5 % (0-1); EOSINOPHILS # (AUTO) 0.2 X10'3 (0-0.9); EOSINOPHILS % (AUTO) 3.4 % (0-6); HEMATOCRIT 40.7 % (35.0-45.0); HEMOGLOBIN 13.9 g/dl (12.0-16.0); LYMPHOCYTES # (AUTO) 1.9 X10'3 (1.1-4.8); LYMPHOCYTES % (AUTO) 36.4 % (21-51); MEAN CORPUSCULAR HEMOGLOBIN 31.9 PG (27.0-31.0); MEAN CORPUSCULAR HGB CONC 34.1 g/dL (33.0-36.5); MEAN CORPUSCULAR VOLUME 93.7 FL (78-98); MEAN PLATELET VOLUME 6.4 FL (7.4-10.4); MONOCYTES # (AUTO) 0.4 X10'3 (0-0.9); MONOCYTES % (AUTO) 7.5 % (2-12); NEUTROPHILS # (AUTO) 2.7 X10'3 (1.8-7.7); NEUTROPHILS % (AUTO) 52.2 % (42-75); PLATELET COUNT 372 X10'3 (140-440); RED BLOOD COUNT 4.35 X10'6 (4.20-5.60); RED CELL DISTRIBUTION WIDTH 13.5 % (11.5-14.5); WHITE BLOOD COUNT 5.2 X10'3 (4.5-11.0)
[2023-11-12 13:24] LABS: ALBUMIN 4.3 G/DL (3.4-5.0); ANION GAP 12 (8-16); BLOOD UREA NITROGEN 15 MG/DL (7-18); CALCIUM 9.3 MG/DL (8.5-10.1); CHLORIDE 105 MMOL/L (99-107); CREATININE 0.75 MG/DL (0.40-0.90); GLUCOSE 103 MG/DL (70-104); POTASSIUM 3.5 MMOL/L (3.5-5.1); PRO BRAIN NATRIURETIC PEPTIDE < 30 PG/ML (0-125); SODIUM 141 MMOL/L (135-145); TOTAL CARBON DIOXIDE 23.6 MMOL/L (24-32); eCRCL 72 ML/MIN; eGFR 80 ML/MIN
[2023-11-12] MEDS ORDERED: iohexol 350MG/ML 100ml bottle IV ONE (15:33)
[2023-11-12] MEDS: normal saline 1000ml 1,000 ML IV ONE ×2 (16:41→19:30)
[2023-11-12] MEDS: meclizine 12.5mg tablet PO ONE (17:40)
[2023-11-12 18:09] LABS: BILIRUBIN,URINE NEGATIVE (Neg); CLARITY,URINE CLEAR (Clear); COLOR,URINE YELLOW (Yellow); GLUCOSE, URINE NEGATIVE (Neg); KETONES,URINE NEGATIVE (Neg); LEUKOCYTE ESTERASE ,URINE NEGATIVE (Neg); NITRITES, URINE NEGATIVE (Neg); OCCULT BLOOD,URINE NEGATIVE (Neg); PROTEIN,URINE NEGATIVE (Neg); UROBILINOGEN,URINE 0.2 E.U/dL (0.2-1.0)
[2023-11-12 18:17] LABS: UA COLLECTION TYPE OTHER
[2023-11-12] MEDS: magnesium 2GM in 50ml NS 50 ML IV ONE (19:30)
[2023-11-12] MEDS ORDERED: valproate sod inj 500 MG in normal saline 50ml IV soln 45 ML IV ONE (20:00)
[2023-11-12] MEDS: diphenhydrAMINE 50 mg/ml inj IV ONE (20:29)
[2023-11-12] MEDS: LORazepam 2 mg/ml vial IV ONE (20:30)
[2023-11-12 20:31] VITALS: BP 133/80; PULSE 71; RESP 16; TEMP 98.7; O2SAT 98
== END 2023-11-12 20:32 | disposition home or self-care (01) ==
LOC: ER 12:32
DX: R42 Dizziness and giddiness (principal); F12.90 Cannabis use, unspecified, uncomplicated; Z88.8 Allergy status to other drugs, medicaments and biological substances; Z88.1 Allergy status to other antibiotic agents; Z79.899 Other long term (current) drug therapy
CPT/HCPCS: 36415; 70450; 70496; 70498; 71045; 80048; 81003; 82948; 83880; 84484; 85025; 93005; 96360; 96361; 99285; J3490; J7030; J8597; Q9967

== ENCOUNTER 2024-04-18 10:56 | Emergency (ER) | payer MEDICAID ==
[~2024-04-18] VITALS: Ht 162.6 cm; Wt 70.9 kg
[2024-04-18 10:57] VITALS: BP_DIAS 88; O2SAT 94
[2024-04-18 13:10] VITALS: PULSE 80; RESP 18
== END 2024-04-18 13:16 | disposition home or self-care (01) ==
LOC: ER 10:57
DX: S90.852A Superficial foreign body, left foot, initial encounter (principal); M79.672 Pain in left foot; M06.9 Rheumatoid arthritis, unspecified; Z88.8 Allergy status to other drugs, medicaments and biological substances; Z79.899 Other long term (current) drug therapy; Z98.890 Other specified postprocedural states; X58.XXXA Exposure to other specified factors, initial encounter; Y93.89 Activity, other specified; Y92.89 Other specified places as the place of occurrence of the external cause; Y99.8 Other external cause status
CPT/HCPCS: 73630; 99283; L4360